=== PATIENT | female | born 1945 | race Caucasian/White ===

== ENCOUNTER → 2020-04-30 | Outpatient (CLI) | payer MEDICARE ==
--- NOTE | 2020-04-30 13:33 | REPVR ---
PROCEDURE INFORMATION: Exam: MR Cervical Spine Without Contrast Exam date and time: 04/30/2020 12:13 PM Age: 74 years old Clinical indication: Pain; Cervicalgia; Additional info: Other cervical disc degeneration TECHNIQUE: Imaging protocol: Multiplanar magnetic resonance images of the cervical spine without contrast. COMPARISON: No relevant prior studies available. FINDINGS: Vertebrae: There is straightening of the cervical spine which could be secondary to positioning or muscle spasm. There is suggestion of a nondisplaced fracture involving the tip of the odontoid process with increased T2 signal on STIR sequences suggesting bony contusion/ marrow edema. No significant retropulsion or spinal canal compromise is seen. Is there a history of trauma? CT scan of the cervical spine with sagittal and coronal reconstructions is recommended for further evaluation. There is mild anterior subluxation C4 on C5 and C7 on T1. There is mild chronic degenerative wedging of the C5 and C6 vertebral bodies. Otherwise, the cervical vertebral bodies are normal in height and alignment. Spinal cord: The spinal cord is normal in thickness and signal intensity.There is no cord compression or intramedullary signal abnormality. Spinal epidural space: There is no evidence for epidural mass or hemorrhage. C2-C3: No significant disc disease. No significant spinal stenosis. C3-C4: Small diffuse posterior herniation.There is bilateral uncovertebral hypertrophic changes.The facet joints demonstrate moderate degenerative narrowing and sclerosis.There is no evidence of spinal canal narrowing.There is moderate bilateral foraminal stenosis. C4-C5: Small diffuse posterior herniation.There is bilateral uncovertebral hypertrophic changes. Moderate left and severe right facet arthropathy.There is no evidence of spinal canal narrowing. There is mild left foraminal stenosis. There is severe right foraminal stenosis. There is compression on the right exiting nerve root. C5-C6: Moderately reduced in height and T2 signal indicating degeneration. Mild degenerative endplate changes. Small diffuse posterior disc spur complex.There is bilateral uncovertebral hypertrophic changes.The facet joints demonstrate moderate degenerative narrowing and sclerosis. There is no evidence of spinal canal narrowing. There is severe bilateral foraminal stenosis. There is compression on the bilateral exiting nerve root. C6-C7: Moderately reduced in height and T2 signal indicating degeneration. Small diffuse posterior herniation.Mild degenerative endplate changes.The facet joints demonstrate moderate degenerative narrowing and sclerosis. There is no evidence of spinal canal narrowing. There is moderate bilateral foraminal stenosis. C7-T1: There is no significant degenerative disc herniation.The spinal canal and neural foramina are patent and without significant stenosis. Brain: There is no evidence of epidural masses or hemorrhage. Vertebral arteries: Expected flow voids in the vertebral arteries. Soft tissues: The prevertebral soft tissues appear normal. IMPRESSION: 1. MRI of the cervical spine reveals multilevel degenerative spondylitic changes and degenerative disc disease as described above. Normal cervical spinal cord. 2. There is suggestion of a nondisplaced fracture involving the tip of the odontoid process with increased T2 signal on STIR sequences suggesting bony contusion/ marrow edema. No significant retropulsion or spinal canal compromise is seen. Is there a history of trauma? CT scan of the cervical spine with sagittal and coronal reconstructions is recommended for further evaluation. 3. There is mild anterior subluxation C4 on C5 and C7 on T1. There is mild chronic degenerative wedging of the C5 and C6 vertebral bodies. Otherwise, the cervical vertebral bodies are normal in height and alignment. Electronically signed by: Mark Collier On 04/30/2020 13:32:47 PM
== END ==
LOC: M RAD 10:16
PROVIDERS: ATTEND Physician Assistant
DX: M50.221 Other cervical disc displacement at C4-C5 level (principal); M50.31 Other cervical disc degeneration, high cervical region; M50.321 Other cervical disc degeneration at C4-C5 level; M50.322 Other cervical disc degeneration at C5-C6 level; M50.323 Other cervical disc degeneration at C6-C7 level

== ENCOUNTER → 2020-09-19 | Outpatient (REF) | payer MEDICARE | LOC: M LAB REF 12:27 | PROVIDERS: ATTEND Ophthalmology | DX: H02.834 Dermatochalasis of left upper eyelid (principal) ==

== ENCOUNTER → 2020-12-21 | Outpatient (REF) | payer MEDICARE ==
[2020-12-21 16:11] LABS: BLOOD UREA NITROGEN 13 MG/DL (7-18); CALCIUM LEVEL 11.8 MG/DL (8.8-10.2); CARBON DIOXIDE LEVEL 31 MEQ/L (21-32); CHLORIDE LEVEL 98 MEQ/L (98-107); CREATININE FOR GFR 0.62 MG/DL (0.55-1.30); GLOMERULAR FILTRATION RATE > 60.0 (>39); GLUCOSE, FASTING 102 MG/DL (70-100); POTASSIUM SERUM 4.4 MEQ/L (3.5-5.1); SODIUM LEVEL 133 MEQ/L (136-145)
== END ==
LOC: M PLALAB 11:34
PROVIDERS: ATTEND Surgery
DX: C50.911 Malignant neoplasm of unspecified site of right female breast (principal)

== ENCOUNTER → 2021-01-04 | Outpatient (CLI) | payer MEDICARE ==
[~2021-01-04] MED LIST: PROHANCE 279.3MG/ML 15ML VIAL As Ordered ONE; PROHANCE 279.3MG/ML 5ML VIAL As Ordered ONE
--- NOTE | 2021-01-04 17:40 | REP ---
INDICATION: INVASIVE DUCTAL CARCINOMA RT BREAST. COMPARISON: Comparison mammography is from October 12, 2020. TECHNIQUE: Three Rayne MRI imaging was performed with a dedicated breast coil. Axial, coronal, and sagittal T1 and T2 weighted scans were obtained with and without fat saturation in the usual fashion. The study includes dynamically acquired post gadolinium-enhanced imaging with image subtraction. Maximum intensity projection and multi planar reformation imaging is included as well. This study is interpreted with the aid of [employer], an FDA approved computer aided detection (CAD) software program, on a dedicated breast MRI workstation. The gadolinium enhancement dose is 16 mL of intravenous ProHance. FINDINGS: There is a mild to moderate amount of fibroglandular tissue bilaterally corresponding with the mammographic pattern. There is mild background parenchymal enhancement. There is no significant breast cystic change. In the lateral aspect of the right breast middle 3rd, in the 8 o'clock position, there is a 1.8 cm heterogeneously enhancing spiculated lesion with a needle biopsy marker clip artifact within it consistent with the biopsy-proven malignancy in the right breast. No other suspicious morphologic abnormality is seen in either breast on high-resolution images. Dynamically acquired sequential postcontrast images demonstrate heterogeneous enhancement and washout kinetics in the mass in the right breast. No other suspicious focus of enhancement and washout is seen on either side. There are several lymph nodes in the right axilla, 1 of which has somewhat eccentric cortical thickness measuring up to 6 mm. This is felt to be somewhat suspicious. No internal mammary adenopathy is seen. No left-sided adenopathy is observed. IMPRESSION: BI-RADS category 6 known right breast malignancy. Spiculated heterogeneously enhancing mass containing a needle biopsy marker clip is seen in the right lateral breast at approximately 8 o'clock middle 3rd. No other suspicious breast abnormality is seen. There is 1 suspicious lymph node in the right axilla.. <Electronically signed by Segun Castillo > 01/04/21 [id number]
== END ==
LOC: M RAD 15:37
PROVIDERS: ATTEND Surgery
DX: C50.911 Malignant neoplasm of unspecified site of right female breast (principal); R59.0 Localized enlarged lymph nodes
CPT/HCPCS: A9576; C8908

== ENCOUNTER → 2021-01-11 | Outpatient (CLI) | payer MEDICARE ==
--- NOTE | 2021-01-11 11:54 | REP ---
INDICATION: ABN LYMPHNODE RT BREAST ABN IMAGING MRI. COMPARISON: Comparison is made with recent MRI study from January 04, 2021 showing a lymph node in the right axilla with cortical thickening. Recent mammography November 2020. TECHNIQUE: Right axillary soft tissue sonography is carried out. Targeted ultrasound. FINDINGS: Right axillary sonography demonstrates a lymph node measuring 1.5 x 0.8 by 0.9 cm. This has eccentric cortical thickening measuring up to 5 mm in thickness. Its size and appearance matches the morphology of the suspicious lymph node on MRI scanning. No other suspicious adenopathy is seen. There are 1 or 2 adjacent normal appearing lymph nodes. No axillary mass is seen. IMPRESSION: There is a 1.5 cm lymph node in the right axilla with eccentric 5 mm cortical thickening corresponding to the MRI findings. Ultrasound could be utilized to guide needle biopsy or needle localization if desired. <Electronically signed by Segun Castillo > 01/11/21 [id number]
== END ==
LOC: M RAD 11:05
PROVIDERS: ATTEND Surgery
DX: R92.8 Other abnormal and inconclusive findings on diagnostic imaging of breast (principal); R59.0 Localized enlarged lymph nodes

== ENCOUNTER → 2021-01-16 | Outpatient (CLI) | payer MEDICARE ==
[~2021-01-16] MED LIST changes: +CALC1TAB26 PO; +CHLO125TA PO; +CITA20TA6 PO; +COQ-100C5 PO; +GABA-282 PO; +GNP1000C11 PO; +LOSA50TA88 PO; +LUTEIN PO; +MULT-90 PO; +OMEP-218 PO; +OXYB5TAB10 PO; -PROHANCE 279.3MG/ML 15ML VIAL As Ordered ONE; -PROHANCE 279.3MG/ML 5ML VIAL As Ordered ONE
[2021-01-16 15:52] VITALS: BP 158/96
--- NOTE | 2021-01-17 10:14 | REP ---
INDICATION: R59.9 R LYMPH NODE ENLARGEMENT/CA OF R BREAST. COMPARISON: 10/12/2020. TECHNIQUE: MLO and CC views right breast. Tomosynthesis. FINDINGS: Two clips are seen in the upper outer quadrant of the right breast. IMPRESSION: Two clips are seen in the upper outer quadrant of the right breast. RECOMMENDATION: None. <Electronically signed by Sukhdeep Tatum > 01/17/21 1010
--- NOTE | 2021-01-19 20:41 | ROOPDOC ---
[facility] Report Of Operation Report of Operation DATE OF PROCEDURE: 01/16/21 DIAGNOSIS: Right abnormal axillary lymph node and right breast cancer PROCEDURE: Ultrasound guided Right abnormal axillary lymph node biopsy with clip placement and ultrasound guided Hydromark placement into right breast at the cancer site SURGEON: Linden Pittman BLOOD LOSS: minimal COMPLICATIONS: none Lidocaine 1% [id number] Expiration 02/2024 Sodium Bicarbonate 8.4% LOT [id number] Expiration 09/2021 LYMPH NODE BX: Hydromark clip LOT [id number] Expiration 06/2023 SHAPE 4 Bx device: TEMNO 18G x 20 cm LOT [id number] Expiration 05/2023 BREAST MARKER PLACEMENT: Hydromark clip [id number] Expiration 01/2023 SHAPE 3 Informed consent was obtained. The most common risk and possible complications including bleeding, hematoma, bruising, infection, injury to surrounding structures were explained to the patient and the patient expressed understanding. Patient was placed on the bed in the supine position. Appropriate time out was done stating patients name, date of , and the procedure to be performed. The right axilla was prepped and draped in the usual fashion. The ultrasound was used to confirm the location of enlarged lymph node with cortex measuring 5 mm and the location of the right breast cancer at 9:00 6 CFN. Procedure was started with right axillary lymph node biopsy. Plain Lidocaine 1% and 8.4% sodium bicarbonate 10:1 mix was used to anesthetize the skin, the biopsy site and tissues along the anticipated biopsy tract. Small skin incision was made with blade number 11. Temno 18G cannula with introducer was inserted through the incision and advanced under the ultrasound guidance to position immediately adjacent to the enlarged lymph node with 5 mm cortex. Next, the introducer was removed and Temno 18G biopsy device was places in the cannula. Pre-biopsy imaging, and post- biopsy imaging were captured. Five good core biopsies were taken at various levels of the lesion. Specimen was placed in formaldehyde, labeled with appropriate biopsy site and patients name, and sent to pathology for evaluation. Next, the biopsy device and cannula were withdrawn and a clip introducer was inserted into the position immediately adjacent to the biopsied lymph node. The SHAPE 4 Hydromark clip was deployed under sonographic guidance. Post-clip placement image was captured. Manual pressure over the biopsy cavity and tract was held after the clip introducer was withdrawn. No bleeding was noted upon removal of the pressure. At this time, our attention was turned toward the right breast. Plain Lidocaine 1% and 8.4% sodium bicarbonate 10:1 mix was used to anesthetize the skin and tissues along the anticipated clip placement tract. Small skin incision was made with blade number 11. Clip introducer was inserted into the right breast and directed under ultrasound guidance immediately next to the mass located at 9:00 6 CFN. The SHAPE 3 Hydromark clip was deployed and images were captured. Introducer was withdrawn and pressure was held. No bleeding was noted when the pressure was released. Right breast mammogram was done post biopsy and only breast clip was visible despite extended CC and MLO positioning. Postprocedural dressing was placed. Patient tolerated procedure well. Discharge instructions were discussed with the patient and the patient expressed understanding. LINDEN PITTMAN DO Jan 19, 2021 20:41
== END ==
LOC: M WHCPRO 10:17
PROVIDERS: ATTEND Surgery
DX: R59.9 Enlarged lymph nodes, unspecified (principal); C50.911 Malignant neoplasm of unspecified site of right female breast
CPT/HCPCS: 19281; 38505; 77065; 88305; 88342; G0279

== ENCOUNTER → 2021-01-21 | Outpatient (REF) | payer MEDICARE ==
[2021-01-21 15:32] LABS: HEMATOCRIT 35.8 % (36.0-47.0); HEMOGLOBIN 11.8 g/dl (12.0-15.5); MEAN CORPUSCULAR HEMOGLOBIN 31.1 pg (27.0-33.0); MEAN CORPUSCULAR VOLUME 94.2 fl (80.0-96.0); PLATELET COUNT, AUTOMATED 282 10^3/uL (150-450); WHITE BLOOD COUNT 7.9 10^3/uL (4.0-10.0)
[2021-01-21 15:46] LABS: HEMOGLOBIN A1c 5.7 %
[2021-01-21 15:50] LABS: ALT/SGPT 31 U/L (12-78); BILIRUBIN,TOTAL 0.3 MG/DL (0.2-1.0); BLOOD UREA NITROGEN 18 MG/DL (7-18); CALCIUM LEVEL 11.1 MG/DL (8.8-10.2); CARBON DIOXIDE LEVEL 28 MEQ/L (21-32); CHLORIDE LEVEL 99 MEQ/L (98-107); CREATININE FOR GFR 0.74 MG/DL (0.55-1.30); GLOMERULAR FILTRATION RATE > 60.0 (>39); GLUCOSE, FASTING 79 MG/DL (70-100); POTASSIUM SERUM 3.9 MEQ/L (3.5-5.1); SODIUM LEVEL 134 MEQ/L (136-145); TOTAL PROTEIN 7.1 GM/DL (6.4-8.2)
[2021-01-21 15:56] LABS: PTH INTACT 32.6 PG/ML (18.5-88.0)
== END ==
LOC: M PLALAB 13:49
PROVIDERS: ATTEND Surgery
DX: E83.52 Hypercalcemia (principal); Z79.899 Other long term (current) drug therapy

== ENCOUNTER → 2021-01-28 | Outpatient (REF) | payer MEDICARE | LOC: M PLALAB 11:44 | PROVIDERS: ATTEND Surgery | DX: E83.52 Hypercalcemia (principal) ==

== ENCOUNTER → 2021-02-02 | Outpatient (CLI) | payer MEDICARE | LOC: M LABSMTC 08:15 | PROVIDERS: ATTEND Anesthesiology | DX: Z01.812 Encounter for preprocedural laboratory examination (principal); Z20.822 Contact with and (suspected) exposure to COVID-19 ==

== ENCOUNTER 2021-02-07 09:40 | Day surgery (SDC) | payer MEDICARE ==
[~2021-02-07] VITALS: Ht 154.9 cm; Wt 79.3 kg
[~2021-02-07 09:40] MED LIST changes: +ACYC1TAB PO; +FLAXSEED MEAL PO; +HEPARIN SOD (PORCINE) 5000UNITS/ML 1ML VIAL/SYRINGE SQ ONE; +LIDOCAINE 1% MDV 20ML VIAL SQ PRN; +LR 1,000 ML IV ONE; +METF-838 PO; +RA T500C2 PO; +ceFAZolin SOD 2 GM in IV 1 EA IV ONE
[2021-02-07] MEDS ORDERED: CO Q200C10 PO (10:25)
[2021-02-07] MEDS ORDERED: LIDOCAINE 2% 100MG/5ML SDV (FOR ANES.) As Ordered ONE (11:04)
[2021-02-07] MEDS ORDERED: fentaNYL 100 MCG/2 ML INJECTION (J3010) As Ordered ONE ×2 (11:04→15:06)
[2021-02-07] MEDS ORDERED: propofoL 200 MG/20 ML VIAL As Ordered ONE ×2 (11:04→16:40)
[2021-02-07] MEDS ORDERED: dexameTHASONE 4 MG/ML 1ML VIAL (J1100 PER 1MG) As Ordered ONE (11:04)
[2021-02-07] MEDS ORDERED: MIDAZOLAM INJ 2MG/2ML VIAL (J2250 PER 1MG) As Ordered ONE (11:04)
[2021-02-07] MEDS ORDERED: ONDANSETRON 4MG/2ML VIAL As Ordered ONE (11:04)
[2021-02-07] MEDS ORDERED: BUPIVACAINE HCL 0.25% 30ML VIAL As Ordered ONE (13:24)
[2021-02-07] MEDS ORDERED: LIDOCAINE 1% SDV 30ML VIAL As Ordered ONE (13:24)
[2021-02-07] MEDS ORDERED: ACETAMINOPHEN 1000MG 100ML IV BTL (OFIRMEV) (J0131 PER 10MG) As Ordered ONE (14:07)
[2021-02-07] MEDS ORDERED: GLYCOPYRROLATE INJ 0.2 MG/ML 2 ML VIAL As Ordered ONE (14:11)
[2021-02-07] MEDS ORDERED: METOCLOPRAMIDE INJ 10MG/2ML VIAL (J2765 PER 1) As Ordered ONE (14:31)
--- NOTE | 2021-02-07 16:10 | REP ---
INDICATION: RIGHT BREAST CA. COMPARISON: None. TECHNIQUE: The procedure was performed under the direct supervision of Dr. Tatum. The images were reviewed with Dr. Tatum. The risks and benefits of the procedure were explained to the patient informed consent was obtained. Using topical anesthetic and sterile technique 1.016 mCi of technetium 99 filtered sulfur colloid was injected subdermally in 8 fractionated periareolar injections. Images obtained 1 hour after injection show a focus of uptake in the right axillary region. FINDINGS: None IMPRESSION: Right breast lymphoscintigraphy. There is a focus of uptake in the right axillary region. <Electronically signed by Ed Rashid > 02/07/21 1604 <Electronically signed by Sukhdeep Tatum > 02/07/21 1601
[2021-02-07] MEDS ORDERED: ROXI1TAB2 PO (17:25)
[2021-02-07] MEDS ORDERED: oxyCODONE 5MG TAB PO PRN (17:25)
[2021-02-07] MEDS ORDERED: fentaNYL 100 MCG/2 ML INJECTION (J3010) IV PRN (17:25)
[2021-02-07] MEDS ORDERED: ONDANSETRON 4MG/2ML VIAL IV PRN (17:25)
[2021-02-07] MEDS ORDERED: LR 1,000 ML IV SCH (17:25)
[2021-02-07 20:23] VITALS: BP 133/63
--- NOTE | 2021-02-12 10:26 | ROOPDOC ---
[facility] Report Of Operation Report of Operation DATE OF PROCEDURE: 02/07/21 PREPROCEDURE DIAGNOSES: right breast cancer POSTPROCEDURE DIAGNOSES: same PROCEDURE PERFORMED: Right lumpectomy with intraop wire placement into right breast, Right sentinel lymph node biopsy, right axillary intraop wire placement and right axillary excision of previously biopsied lymph node, intraop radiography SURGEON: Dr Linden Castillo ANESTHESIA: general ESTIMATED BLOOD LOSS: Approximately 50 mL. COMPLICATIONS: none FINDINGS: R axillary previously bx LN identified and excised, not hot, R axill SLN identified, hot, 2 clips surrounding R breast Ca identified DESCRIPTION OF PROCEDURE: INDICATIONS: Ms. John Currie is a 75-year-old woman who was found to have a suspicious lesion on screening right breast mammogram. This was evaluated with US and son ographic correlate was found. 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 MRI of the breast was done and showed a suspicious right axillary lymph node. It also showed that the cancer was measuring about 1.8 cm. Patient underwent second look US of the right axilla which showed the likely correlate to the suspicious lymph node seen on MRI. This lymph node was biopsied and clipped. Another Hydromark clip was placed at the same time into the right breast mass. Pathology of the lymph node was benign. Surgical discussion was done and patient opted for breast conservative surgery with sentinel lymph node biopsy on the right and targeted excision of the right axillary previously biopsied lymph node. She was medically cleared for surgery by her primary care doctor. Risks and possible complications of surgical procedure including bleeding, infection and injury to surrounding structures were explained to the patient and she wished to proceed. Consent was signed. My initials were placed on the operative site. Subcutaneous injection of 5000 units of heparin was done in Preop. The injection of radioactive tracer was done in radiology department preoperatively. Lymphoscintigraphy imaging was reviewed in preop. DETAILS: Patient was taken to the operating room and placed on the operating room table. A sign in was called stating patients name, date of and the procedure to be done. Preoperative antibiotics were infused. Smooth induction of general anesthesia was done. Patients hands were extended on arm rests. Care was taken not to over extend the arms. Pillow was placed under the knees and a foam was placed under the heels. Sequential compression devices were placed and assured to function correctly. Appropriate time out was done and patients name, date of , and the procedure to be done were confirmed. Procedure was started with right axillary lymph node intraop wire localization. Right axilla and breast were cleaned by me. Intraoperative ultrasound was used to confirm location of the Hydromark clip in the axilla. Location of the clip was marked on the skin as well. 21 G Kopans Breast Lesion Localization Needle was used to place 25 cm wire through the lymph node. The images were captured confirming adequate placement of the localizing wire. Diesel Truck Mechanic assisted with the wire placement. Next, our attention was turned toward the right breast which contained cancer and the two clips- one Hydromark, and the other nonHydromark. Intraoperative ultrasound was used to confirm location of the Hydromark clip and the cancer in the right breast. Location of the clip and cancer was marked on the skin as well. 21 G Kopans Breast Lesion Localization Needle was used to place 25 cm wire through the lesion. The end of the wire was passed a centimeter deep. The images were captured confirming adequate placement of the localizing wire. Diesel Truck Mechanic assisted with the wire placement. Next, patients right breast and axilla were prepped and draped in the usual fashion. Care was taken not to displace the wires. Appropriate time out was done again prior second part of the procedure. Patients name, date of , and the procedure to be done were confirmed. Procedure was started with sentinel lymph node biopsy. Neoprobe was used to locate area of maximum intensity of the signal. Local anesthetic using 1% lidocaine and 0.25 % Marcaine 50/50 mix was injected. An incision was made with scalpel number 15 at the inferior aspect of axillary hair line in the right axilla where the maximum signal was identified. The sharp and blunt dissection was continued through the subcutaneous adipose tissue. Clavipectoral fascia was opened. At this point, blunt dissection was carried toward the axillary wire. The wire was found and gently pulled into the axillary incision. Dissection was carried toward the previously biopsied lymph node. Hydromark clip was identified immedi ately next to the node and removed. The clip was later placed on the grid immediately next to the node. Double stitch was placed at the site of the clip for marking. The wire was gently lug breaker and wire puller as it was loosely anchored in the soft tissue. The previously identified lymph node was carefully excised. Intraop sonographic examination of the lymph node confirmed irregular cortex shape seen previously during the biopsy. This lymph node was somewhat harder on palpation. It did not have any signal on Neoprobe examination. This lymph node and the identified adjacent clip were placed on the grid and intraop radiography with [employer] Specimen Imaging System was done, confirming and documenting the findings. The specimen was labeled with patients name, previously biopsied right axillary lymph node and sent to pathology. Next, Neoprobe was used to guide the dissection of sentinel lymph node. A sentinel lymph node was identified in deep medial axilla and excised. The ex- vivo 10 second count was 1596. The specimens were labeled with patients name and sent to pathology. No additional lymph nodes with high radioactive signal were identified. There were no suspicious palpable lymph nodes either. The 10 second count of the background was 15. Adequate hemostasis was assured. Additional local anesthetic was injected into surrounding tissues. Wound was irrigated. Clavipectoral fascia was closed with 3-0 Vicryl interrupted suture. Dermal layer was closed at the end of the case with 3-0 Monocryl and skin was closed with 4-0 Monocryl. Surgical glue was applied to the incision at the end of the procedure. At this point, our attention was turned toward the right breast. Local anesthetic using 1% lidocaine and 0.25 % Marcaine 50/50 mix was injected at the site of planned right lateral periareolar incision. The incision was made with the scalpel. Subcutaneous skin flaps were raised and the guide wire was carefully pulled into the wound. Dissection was carries along the wire until the previously marked on the skin area of target lesion location was encountered. Hydromark clip, which was slightly medial to the mass was identified during dissection and removed. Double stitch was placed at the side of the hydromark clip. At this point, wider excision of the tissue surrounding the wire was done. Intraop ultrasound was used to guide the extent of dissection. The end of the wire was contained in the specimen. The lumpectomy specimen was carefully removed from the breast keeping its proper orientation and moved to the back table where margins were marked with the surgical inking kit following the standard colors recommendations. Specimen was then placed on the grid and placed in [employer] [employer] System. The previously excised hydromark clip was not placed on the grid as the site of the clip was previously marked with double stitch. The image revealed the wire, the nonhydromark clip in the middle of the specimen. Since the specimen appeared to have adequate margins on the intraop radiography, no additional margin reexcision was needed. The specimen was labeled with patients name and right lumpectomy and sent to pathology. Right breast wound was thoroughly irrigated. Adequate hemostasis was assured. Additional local anesthetic was injected into surrounding tissues. Clips were p laced to lilliana the cavity margins. space was approximated with 2-0 Vicryl using tissue mobilization to decrease contour defect. The dermis was closed with 3-0 Vicryl and skin was closed with 4-0 Monocryl. Surgical glue was placed over the incision. Patient emerged from the anesthesia without any problems. Fluffs were placed over the operative site and patients chest was wrapped snuggly in the LANEY wrap. Sponge and instrument counts were done and were correct. Patient tolerated procedure well and was taken to recovery unit in stable condition. LINDEN CASTILLO DO Feb 12, 2021 10:26
[2021-02-14] MEDS ORDERED: LOSA100T50 PO (14:59)
[2021-02-14] MEDS ORDERED: FLAXPOW PO (14:59)
[2021-02-14] MEDS ORDERED: NEUR300C PO (14:59)
[2021-02-14] MEDS ORDERED: OCUVTAB PO (14:59)
[2021-02-14] MEDS ORDERED: PERI12LIQ PO (15:01)
[2021-02-14] MEDS ORDERED: SYST1SOL4 OU (15:01)
== END 2021-02-07 20:25 | disposition home or self-care (01) ==
LOC: M SDC 09:40
PROVIDERS: ATTEND Surgery
DX: C50.911 Malignant neoplasm of unspecified site of right female breast (principal); I10 Essential (primary) hypertension; K21.9 Gastro-esophageal reflux disease without esophagitis; E11.9 Type 2 diabetes mellitus without complications; G47.30 Sleep apnea, unspecified; F32.9 Major depressive disorder, single episode, unspecified; Z79.84 Long term (current) use of oral hypoglycemic drugs; Z79.899 Other long term (current) drug therapy
CPT/HCPCS: 19125; 36415; 38525; 76942; 78195; 86850; 86900; 86901; 88305; 88307; 88342; A9541; J0131; J0690; J1100; J1644; J2250; J2405; J2765; J3010

== ENCOUNTER → 2021-03-01 | Outpatient (CLI) | payer MEDICARE ==
[~2021-03-01] MED LIST changes: +CLOB0.0548 TOP; +CLOB0.057 TOP; +CO Q200C10 PO; +FLAXPOW PO; -HEPARIN SOD (PORCINE) 5000UNITS/ML 1ML VIAL/SYRINGE SQ ONE; +HYDR12.55 PO; +LETR2.5T2 PO; -LIDOCAINE 1% MDV 20ML VIAL SQ PRN; +LOSA100T50 PO; -LR 1,000 ML IV ONE; +NEUR300C PO; +OCUVTAB PO; +OMEP40CA4 PO; +PERI12LIQ PO; +ROXI1TAB2 PO; +SYST1SOL4 OU; -ceFAZolin SOD 2 GM in IV 1 EA IV ONE
--- NOTE | 2021-03-01 11:26 | RADONC.CN ---
Radiation Oncology Hx/Consult Radiation Oncology Consult Date of Service: Mar 01, 2021 Pt Identifier Jw Currie is a 75 year old female with mammographically detected right breast cancer pT1cN0(sn)M0 ER/MI+ HER2- Grade 2. She is s/p lumpectomy and SLNB with Dr. Castillo on 02/07/21. She is seen for consideration of adjuvant RT. 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 Prior to pandemic was an avid swimmer, since the pandemic has been more sedentary. Has some chronic fatigue. Appetite is good and weight is stable. She has noted some post-operative swelling under the right arm which is resolving. No pain in the breast. She has some claustrophobia. Does not like wearing sports bras secondary to their confining feeling. Past Medical History: Athritis DMII HRN Alcoholism (in remission) Past Surgical History: Bunionectomy D&C Colonoscopy Family History: Paternal grandmother cancer Maternal grandmother cancer (unknown types) Social History: Never smoker Quit drinking 34 years ago Allergies / Meds Allergies: Coded Allergies: No Known Allergies (Unverified , 01/16/21) Home Meds Active Scripts Oxycodone HCl (Roxicodone) 5 Mg Tablet, 5 MG PO Q6HP PRN for pain MDD 4 Tablet(s) for 5 Days, #10 TAB Prov:LINDEN CASTILLO DO 02/07/21 Reported Medications Propylene Glycol/Peg 400/Pf (Systane 0.3-0.4% Eye Drop) Unknown Strength [place], OU BID for 30 Days, #30 EA 02/14/21 Chlorhexidine Gluconate (Chlorhexidine Gluconate) 473 Ml Mouthwash, 15 ML PO BID 02/14/21 Losartan Potassium (Losartan Potassium) 100 Mg Tablet, 1 TAB PO QHS 02/14/21 Gabapentin (Neurontin) 300 Mg Capsule, 2 CAP PO QHS for 30 Days, #60 CAP 02/14/21 Flaxseed (Flaxseed) Unknown Strength Powder, PO DAILY 02/14/21 Vits A,C,E/Lutein/Minerals (Ocuvite with Lutein Tablet) 1 Each Tablet, 1 TAB PO DAILY for 30 Days, #30 TAB 02/14/21 Ubidecarenone (Co Q-10) 200 Mg Capsule, 200 MG PO DAILY, CAP 02/07/21 Turmeric Root Extract (Turmeric) 500 Mg Capsule, 500 MG PO DAILY, CAP 02/05/21 Acyclovir (Acyclovir) 400 Mg Tablet, 1 TAB PO BIDP 02/05/21 Metformin HCl (Metformin HCl ER) 500 Mg Tab.er.24h, 500 MG PO BID 02/05/21 Oxybutynin Chloride (Oxybutynin Chloride) 5 Mg Tablet, 1 TAB PO 3XW for urinary discomfort for 30 Days, #60 TAB 01/16/21 Omeprazole (Omeprazole) 20 Mg Capsule.dr, 1 CAP PO DAILY for 30 Days, #30 CAP 01/16/21 Gabapentin (Gabapentin) 300 Mg Capsule, 1 CAP PO BID for 30 Days, #60 CAP 01/16/21 Citalopram Hydrobromide (Citalopram HBr) 20 Mg Tablet, 1 TAB PO DAILY for 30 Days, #30 TAB 01/16/21 Chlorthalidone (Chlorthalidone) 25 Mg Tablet, 12.5 TAB PO DAILY for 30 Days, #30 TAB 01/16/21 Review of Systems Constitutional: Reports: Fatigue; Denies: Chills, Fever, Weight Loss Eyes: Denies: Pain HEENT: Denies: Head Aches Skin: Denies: Rash Pulmonary: Denies: Dyspnea, Cough Cardiovascular: Denies: Chest Pain, Palpitations Breast: Denies: New Breast Lumps / Masses, Nipple Retraction, Nipple Discharge, Breast Skin Changes, Breast Pain or Tenderness, Other Breast Complaints Gastrointestinal: Denies: Nausea, Vomiting, Abdominal Pain Hematologic: Denies: Bruising, Bleeding Excessively Musculoskeletal: Denies: Neck pain, Back pain Neurological: Denies: Weakness, Numbness Psych: Reports: Mood Normal Vital Signs Ht 62" Wt 176 lbs BMI 32 T 96.6 P 66 RR 18 BP 135/78 O2 96% Pain 0 Fatigue 1 General Exam: Positive: Alert, Cooperative, No Acute Distress Eye Exam: Positive: PERRLA, EOMI ENT EXAM: Positive: Mucous membr. moist/pink, Pharynx Normal Neck Exam: Negative: Thyromegaly, Lymphadenopathy Chest Exam: Positive: Normal air movement; Negative: Rales, Rhonchi, Wheezing Heart Exam: Positive: Rate Normal, Regular Rhythm Breast Exam: Positive: Symmetric Bilaterally (Mild ptosis); Negative: Lumps or Masses (There is a palpable surgical site in the lower outer quadrant of the right breast. There is a small area of edema in the inferior right axilla which is mildly tender), Nipple Discharge, Skin Changes (Well healed periareolar and axillary incisions on the right) Abdomen Exam: Positive: Soft Extremity Exam: Negative: Edema Skin Exam: Positive: Nl turgor and temperature Neuro Exam: Positive: Normal Gait, Normal Speech, Cranial Nerves 3-12 NL Psych Exam: Positive: Mental status NL Diagnostic and Laboratory Diagnostic Review Radiologic images, relevant labs and pathology reports were personally reviewed and discussed with Ms. John Currie. Assessment and Plan Impression Ms. John Currie is a 75 year old female with mammographically detected right breast cancer pT1cN0(sn)M0 ER/MI+ HER2- Grade 2. She is s/p lumpectomy and SLNB with Dr. Castillo on 02/07/21. She is seen for consideration of adjuvant RT. Stage Right lower outer breast cancer IDC pT1cN0(sn)M0 ER/MI+ HER2- Grade 2 stage IA Performance Status ECOG 0 Plan We had an extensive discussion with Ms. John Currie regarding the diagnosis at hand and available therapeutic options. She is doing well post-operatively with resolving discomfort in her axillary seroma. She is overall fit. She intends to take the AI offered by Dr. Kelly. With respect to adjuvant radiation I presented the option of omission in great detail as she fits the criteria of CALGB 9343 which demonstrated that RT omission in patient like her did not compromise survival outcomes. Patients for whom RT was omitted did however have higher risk of in-breast recurrence. For a radiation option I explained that she would be appropriate for APBI, I would give her 5 fx with VMAT to the tumor bed with margin. This would confer a decrease in the probability of ipsilateral recurrence, and be minimally toxic or inconvenient for her. We discussed the data in support of this strategy in detail as well. She prefers the APBI option. However she [place] 1[place] hours distant from our center and would prefer referral back to [facility] which is much closer to home. I will facilitate referral there for her. We did review the side effects of RT including fatigue, skin reaction and late fibrosis. We discussed the logistics of receiving radiation therapy in detail including the need for a 1-time planning session. This would by necessity occur at the center where she is considering treatment. After discussing the risks, benefits and alternatives to radiation therapy, Ms. John Currie was amenable to pursuing radiotherapy at [facility]. All questions were answered to the patient's satisfaction. We instructed the patient that if there were any questions,concerns or changes in clinical status in the interim to contact us. Recommendations Referral to [facility] for RT consideration (closer to patient's home) Reviewed options of RT omission versus APBI Follow up PRN if further questions Billing Statement Total time of [47] minutes was spent preparing for the visit [3], obtaining HPI [6], examining the patient [5], reviewing diagnostic tests [3], discussing management options [20], coordinating care [3], and writing this note [7]. FARSHAD BAEZ MD Mar 01, 2021 11:26
== END ==
LOC: M ONCR 09:44
PROVIDERS: ATTEND General Practice
DX: C50.511 Malignant neoplasm of lower-outer quadrant of right female breast (principal); L76.34 Postprocedural seroma of skin and subcutaneous tissue following other procedure; E11.9 Type 2 diabetes mellitus without complications; R53.82 Chronic fatigue, unspecified; F40.240 Claustrophobia; M12.9 Arthropathy, unspecified; F10.11 Alcohol abuse, in remission; Z79.899 Other long term (current) drug therapy